=== PATIENT | male | born 1980 | race Two or more races ===

== ENCOUNTER 2019-03-11 15:33 | Outpatient (CLI) | payer OTHER ==
--- NOTE | 2019-03-12 17:09 | XRAY Report ---
Reason: KNEE PAIN ACUTE, LT + RT Procedure Date: 03/11/2019 Accession Number: [id number] / [id number] Procedure: XR - Knee 3 View BILAT CPT Code: Final Report FULL RESULT: EXAMS: 1. Right Knee Radiography 2. Left Knee Radiography EXAM DATE:03/11/2019 04:10 PM. CLINICAL HISTORY:Knee pain after being pinned by a metal sheet with impact to the top of the knees bilaterally. COMPARISON: None. TECHNIQUE: Frontal, lateral, and sunrise patellar views of each knee. FINDINGS: Right Knee: Bones: Normal. No fractures or bone lesions. Joints: Normal. No effusion. No subluxations. Soft Tissues: Normal. No soft tissue swelling. Left Knee: Bones: Normal. No fractures or bone lesions. Joints: Normal. No effusion. No subluxations. Soft Tissues: Normal. No soft tissue swelling. IMPRESSION: No acute bony abnormality. RADIA
== END 2019-03-11 15:34 | disposition home or self-care (01) ==
LOC: DI 15:33
PROVIDERS: ATTEND Registered Nurse
DX: M25.561 Pain in right knee (principal); M25.562 Pain in left knee

== ENCOUNTER 2022-12-24 09:36 | Emergency (ER) | payer OTHER ==
[2022-12-24 10:05] VITALS: BP 117/77; O2SAT 97
[2022-12-24] MEDS ORDERED: IBUPROFEN 800 MG TABLET PO STA (10:18)
--- NOTE | 2022-12-24 10:21 | ED Physician Documentation ---
PD HPI LOWER EXT INJURY - Stated complaint Stated Complaint: RT LEG PX - Chief complaint Chief Complaint: Trauma Ext - History obtained from History obtained from: Patient - History of Present Illness PD HPI LOW EXT INJURY LOCATION: Right, Upper leg Type of injury: Fall Where injury occurred: Work Timing - onset: Yesterday Pain level max: 5 Pain level now: 4 Improved by: Rest Worsened by: Moving, Palpating Associated symptoms: No: Weakness, Numbness, Tingling, Swelling Contributing factors: No: Anticoagulated - Additional information Additional information: Patient is a 42-year-old male who presents to the emergency department stating that he works at [employer], yesterday he slipped on a beam and it scraped the back of his leg. He states that there is swelling and bruising. He states it is painful to walk. No head injury, no neck or back pain. No numbness or tingling. No pain in the front of the leg. He is able to bear full weight on the leg. Has not taken anything for the pain. Has not used any ice. Review of Systems Constitutional: denies: Fever, Chills GI: denies: Vomiting, Diarrhea Skin: denies: Rash Musculoskeletal: denies: Neck pain, Back pain Neurologic: denies: Headache PD PAST MEDICAL HISTORY - Past Medical History Past Medical History: No - Past Surgical History Past Surgical History: Yes - Present Medications Home Medications: Ambulatory Orders Medication Instructions Recorded Confirmed Ibuprofen [Motrin] 800 mg PO Q8H PRN #30 tablet 12/24/22 - Allergies Allergies/Adverse Reactions: Allergies Allergy/AdvReac Type Severity Reaction Status Date / Time No Known Drug Allergies Allergy Verified 12/24/22 10:00 - Social History Does the pt smoke?: No Smoking Status: Never smoker Does the pt drink ETOH?: No Does the pt have substance abuse?: No - Immunizations Immunizations are current?: Yes - POLST Patient has POLST: No PD ED PE NORMAL - Vitals Vital signs reviewed: Yes - General General: Alert and oriented X 3, No acute distress - HEENT HEENT: Moist mucous membranes - Neck Neck: Supple, no meningeal sign - Cardiac Cardiac: RRR - Respiratory Respiratory: No respiratory distress, Clear bilaterally - Derm Derm: Warm and dry - Extremities Extremities: Other - Neuro Neuro: Alert and oriented X 3 - Psych Psych: Normal mood, Normal affect - Free text exam Free text exam: R thigh - There is a 4 x 4 centimeter area of abrasion with mild surrounding ecchymosis. No large hematoma. Neurovascular intact. No bony tenderness along the anterior aspect of the thigh. The abrasion and ecchymosis around the posterior aspect of the thigh. Full range of motion of the hip, knee and ankle without pain. Able to bear weight on the leg fully without pain. Results - Vitals Vitals: Vital Signs - 24 hr 12/24/22 09:55 Temperature 36.5 C Heart Rate 70 Respiratory 14 Rate Blood Pressure 117/77 O2 Saturation 97 Oxygen O2 Source Room air PD Medical Decision Making - ED course Complexity details: considered differential, d/w patient ED course: No indication for x-ray. No evidence of femur fracture. Appears to have soft tissue contusion and abrasion. Compression applied, will utilize his anti- inflammatories and ice at home. We will have him follow-up with his doctor for further care. Ambulating well. Neurovascular intact. Patient counseled regarding signs and symptoms for which I believe and urgent re-evaluation would be necessary. Patient with good understanding of and agreement to plan and is comfortable going home at this time This document was made in part using voice recognition software. While efforts are made to proofread this document, sound alike and grammatical errors may occur. L&I form completed. Departure - Departure Disposition: 01 Home, Self Care Clinical Impression: Abrasion Contusion Qualifiers: Encounter type: initial encounter Contusion area: thigh Laterality: right Qualified Code(s): S70.11XA - Contusion of right thigh, initial encounter Condition: Good Instructions: ED Abrasion, ED Contusion Lower Ext Follow-Up: your,doctor in 1 week [Other] Prescriptions: Ibuprofen [Motrin] 800 mg PO Q8H PRN #30 tablet PRN Reason: PAIN &/OR FEVER Comments: Your prescription was sent to [facility] in [place]. You can use the Michael bandage to help apply compression to the area. You can also use ice, 15 to 20 minutes at a time to help decrease the swelling. In 2 to 3 days you can start to use heat to increase the blood flow to the area. That should resolve on its own. Please follow-up with your doctor for further care. Please return if you worsen. Forms: PCP List, Activity restrictions Discharge Date/Time: 12/24/22 10:55
== END 2022-12-24 10:55 | disposition home or self-care (01) ==
LOC: ED 09:36
DX: S70.311A Abrasion, right thigh, initial encounter (principal); S70.11XA Contusion of right thigh, initial encounter; W01.198A Fall on same level from slipping, tripping and stumbling with subsequent striking against other object, initial encounter; Y92.89 Other specified places as the place of occurrence of the external cause; Y99.0 Civilian activity done for income or pay
CPT/HCPCS: 1040M; 99282; 99283; A9270